=== PATIENT | male | born 1950 | race Caucasian/White ===

== ENCOUNTER → 2024-06-19 13:32 | Outpatient (REF) | payer MEDICARE, OTHER, SELFPAY | LOC: RAD 13:32 | PROVIDERS: ATTENDING PHYSICIAN Orthopaedic Surgery; FAMILY PHYSICIAN Internal Medicine Rheumatology; REFERRING PHYSICIAN Family Medicine | DX: M54.12 Radiculopathy, cervical region (principal); E78.5 Hyperlipidemia, unspecified; M25.50 Pain in unspecified joint; M15.0 Primary generalized (osteo)arthritis | CPT/HCPCS: 72050; 73110; 73130 ==

== ENCOUNTER → 2024-11-20 07:53 | Outpatient (REF) | payer MEDICARE, OTHER, SELFPAY | LOC: RAD 07:53 | PROVIDERS: ATTENDING PHYSICIAN Family Medicine | DX: H34.212 Partial retinal artery occlusion, left eye (principal) | CPT/HCPCS: 93306; 93880 ==

== ENCOUNTER 2024-12-23 10:51 | Emergency (ER) | payer MEDICARE, OTHER, SELFPAY ==
[2024-12-23 11:03] VITALS: BP 153/96
[2024-12-23 11:29] LABS: % Basophils 1.3 % (0-2); % Eosinophils 3.4 % (0-6); % Immature Granulocytes 0.3 % (0-0.5); % Monocytes 17.5 % (1.7-9.3); % Neutrophils 43.5 % (42.2-75.2); Absolute Eosinophils 0.1 10^3/uL (0-0.7); Absolute Monocytes 0.5 10^3/uL (0.1-0.6); Absolute Neutrophils 1.3 10^3/uL (1.4-6.5); Hematocrit 39.5 % (39.0-52.0); Hemoglobin 13.6 g/dL (13.0-18.0); Mean Corp Hgb Conc. 34.4 g/dL (33.0-37.0); Mean Corpuscular Hgb 30.9 pg (27.0-31.0); Mean Corpuscular Volume 89.8 fL (80.0-94.0); Mean Platelet Volume 9.4 fL (7.4-10.4); Nucleated Red Blood Cells % 0 % (-); Platelet Count 136 10^3/uL (130-400); Red Cell Dist. Width 12.8 % (11.5-14.5)
[2024-12-23 11:40] LABS: INR 0.86
[2024-12-23 11:44] LABS: ALT (SGPT) 48 U/L (0-50); AST (SGOT) 42 U/L (17-59); Albumin 4.5 g/dl (3.5-5.0); Alkaline Phosphatase 33 U/L (38-126); Blood Urea Nitrogen 33 mg/dl (9-20); Calcium 9.6 mg/dl (8.4-10.2); Carbon Dioxide 27 mmol/L (22-30); Chloride 107 mmol/L (98-107); Glucose 109 mg/dl (70-99); Potassium 4.6 mmol/L (3.5-5.1); Sodium 139 mmol/L (135-145); Total Bilirubin 0.8 mg/dl (0.2-1.3); Total Protein 6.7 g/dl (6.3-8.2); eGFR > 60.00
[2024-12-23 11:56] LABS: Troponin I < 0.012 ng/ml
[2024-12-23 12:43] VITALS: BMI 23.0
[2024-12-23 12:44] VITALS: BP 140/91
[2024-12-23] MEDS: MOTRIN 400 MG PO (13:16)
[2024-12-23 14:00] VITALS: BP 125/78
--- NOTE | 2024-12-23 14:11 | ED.GENMED ---
History of Present Illness
General
Chief Complaint: Cardiac Symptoms
Source: patient
Exam Limitations: none
Time Seen by Provider: 12/23/24 12:41
Nursing documentation reviewed up to this point in time: agreed with
History of Present Illness
History of Present Illness:
Patient presents to ED secondary to persistent left-sided chest pain since last night. Chest pain described as 'vibrating and dull', nonradiating, without any alleviating or exacerbating factors. Denies trauma. Denies associate shortness of
breath, nausea, or dizziness. Denies recent travel or surgery. Denies back pain. Denies leg pain or swelling. Denies previous history of similar symptoms. Patient does have significant arthritis, requiring treatments, including recent
acupuncture. There is no family history of heart disease.
Past History
Past History
ED Past Medical History: HTN and Other (Osteoarthritis status post L5-S1 fusion status post, inflammatory arthritis, daptomycin induced pneumonitis); Negative Asthma, Hypercholesterolemia or NIDDM
ED Past Surgical History: Orthopedic (Spine Surgery Apr 26 2018, Left shoulder surgery) and Other (Hernia repair)
Social History
Tobacco: Non-smoker
Alcohol: None ( cervical fusion)
Personal:
Living: with family
Family History
Family History: Other (Hodgkin's disease with his mother)
Review of Systems
Review of Systems
Allergies reviewed?: Yes
All Other Systems: ROS reviewed and negative except as documented in HPI and ROS
Constitutional: Reports no symptoms; Denies fever
Respiratory: Reports no symptoms; Denies cough or trouble breathing
Cardiac: Reports chest pain
ABD/GI: Reports no symptoms; Denies vomiting or diarrhea
Musculoskeletal: Reports no symptoms
Skin: Reports no symptoms
Neurological: Reports no symptoms
Phy Exam
Physical Exam
Physical Exam:
Physical Exam
General: no apparent distress, not acutely ill. afebrile
Head: nc/at. eomi
Neck: supple. normal range of motion.
Heart: s1/s2 regular rate and rhythm
Lungs: no acute respiratory distress. clear bilaterally. chest wall nontender to palpation
Abdomen: normal bowel sounds. not tender.
Neuro: alert and oriented x 3. no focal neurological deficits
Skin: no rash
Psychiatric: well kept. interactive and cooperative
Extremities: no edema. no calf tenderness.
Course
Orders/Labs/Results
Orders:
Orders
12/23/24 11:06
EKG [Electrocardiogram (*1)] Urgent
Reason for Study: Chest Pain
CR Chest - 2 Views Urgent
Comment:
Reason For Exam: chest pain
12/23/24 11:07
EKG- Treatment ONCE
12/23/24 11:20
Complete Blood Count/With Diff Urgent
Comprehensive Metabolic Panel Urgent
D-Dimer Urgent
Comment: ADD
Prothrombin Time Urgent
Troponin I Urgent
12/23/24 12:57
Ibuprofen [Motrin] 400 mg PO NOW STA
12/23/24 13:06
Add On- LAB Urgent
Tests Added?: d-dimer
Abnormal Lab Results
12/23/24
11:20
WBC 3.0 L 10^3/uL
(4.8-10.8)
RBC 4.40 L 10^6/uL
(4.70-6.10)
Absolute Neuts (auto) 1.3 L 10^3/uL
(1.4-6.5)
Absolute Lymphs (auto) 1.0 L 10^3/uL
(1.2-3.4)
Monocytes % 17.5 H %
(1.7-9.3)
BUN 33 H mg/dl
(9-20)
Glucose 109 H mg/dl
(70-99)
Alkaline Phosphatase 33 L U/L
(38-126)
12/23/24 11:20
12/23/24 11:20
Vital Signs
Initial and Last Documented VS:
Initial Vital Signs
Temp Pulse Resp BP Pulse Ox
98.1 F 76 17 153/96 98
12/23/24 11:03 12/23/24 11:03 12/23/24 11:03 12/23/24 11:03 12/23/24 11:03
Last Documented Vital Signs
Temp Pulse Resp BP Pulse Ox
98.1 F 55 12 125/78 98
12/23/24 11:03 12/23/24 14:00 12/23/24 14:00 12/23/24 14:00 12/23/24 14:08
MDM/Problems Addressed
MDM/Problems Addressed:
Patient with an unremarkable workup in ED, including blood work, EKG, D-dimer, and chest x-ray. Patient without significant cardiac risk factors, nor any family history of heart disease. As such, patient will be discharged home at this time,
referral to cardiology for an outpatient follow-up, with return precautions provided. Pt expressed understanding at time of discharge
*EKG
Interpreted by ED Provider?: Yes
EKG Intrepretation Date: 12/23/24
Heart Rate: 59
Rate: bradycardiac
Rhythm: sinus
[place]: left axis deviation
Interval: normal interval
*Critical Care Note
Total Time (30-74mins, 75-104mins- exclusive of procedures): Not Applicable
ED Attending Note
-
Portions of this chart may have been created with voice recognition software.� Occasional wrong word or��sound alike� substitutions may have occurred due to the inherent limitations of voice recognition software.
Discharge Plan
Departure
Patient Disposition: Home (Routine Discharge)
Date of Disposition: 12/23/24
Time of Disposition: 14:51
Patient with high blood pressure during this ER visit?: Yes
Discharge Problem:
Chest pain
Instructions: Chest Pain DCA Follow Up
Prescriptions:
No Action
omeprazole [Prilosec] 20 MG capsule,delayed release(DR/EC)
20 mg PO DAILY
atorvastatin 20 MG tablet
10 mg PO DAILY
tramadol 50 MG tablet
100 mg PO BID
Patient Comments:
for arthritis by negative developer
diclofenac sodium 75 mg Tablet,Delayed Release (Dr/Ec)
75 mg PO BID
cephalexin 500 mg capsule
500 mg PO Q6H 7 Days Qty: 28 0RF
Referrals:
Miko Pena MD [Active] -
Govind Ndiaye DO [Family Provider] -
Activity Restrictions/Additional Instructions:
As discussed, please follow-up with referred manual writer for reevaluation. Please return to ED with worsening symptoms.
Interventions
Interventions:
*Risk Screen - Suicide Last Done: 12/23/24 11:06
*General Assessment Last Done: 12/23/24 11:06
*Neglect/Abuse Screening Last Done: 12/23/24 11:06
*ED- Fall Risk Assessment Last Done: 12/23/24 12:37
*ED COVID-19 Vaccine History Last Done: 12/23/24 11:06
*Nursing Disposition Last Done: 12/23/24 15:14
ED- Pulmonary Assessment Last Done: 12/23/24 12:37
ED- Cardiac Assessment Last Done: 12/23/24 12:37
Discharge Date and Time
Discharge Date/Time: 12/23/24 15:15
Print Language: OCCITAN
== END 2024-12-23 15:15 | disposition home or self-care (01) ==
LOC: EMR 10:51
PROVIDERS: Emergency Medicine; EMERGENCY PHYSICIAN Emergency Medicine; FAMILY PHYSICIAN Family Medicine
DX: R07.89 Other chest pain (principal); I10 Essential (primary) hypertension; Z98.1 Arthrodesis status
CPT/HCPCS: 99285; 71046; 80053; 84484; 85025; 85379; 85610; 93005